=== PATIENT | female | born 1990 | race Caucasian/White ===

== ENCOUNTER 2020-09-06 00:53 | Outpatient (CLI) | payer SELFPAY ==
[2020-09-06 20:51] LABS: SARS-CoV-2 RNA PCR Negative
== END 2020-09-06 00:54 | disposition home or self-care (01) ==
LOC: ANHCOVIDDT 00:53
PROVIDERS: Visit Provider Surgery Plastic and Reconstructive Surgery
DX: Z01.812 Encounter for preprocedural laboratory examination (principal); Z20.828 Contact with and (suspected) exposure to other viral communicable diseases
CPT/HCPCS: 87635; C9803; U0003

== ENCOUNTER 2020-09-08 11:37 | Day surgery (SDC) | payer OTHER, SELFPAY ==
[2020-08-29 09:01] VITALS: BMI 19.5
--- NOTE | 2020-09-08 09:26 | WPDANESEPPF ---
Anes - Initial Pre Proc Eval Procedure: Operation Date: 09/08/20 14:00 Proposed Procedures p Bilateral Breast Implant Exchange with Galaflex - Drew Cox MD Date/Time: 09/08/20 09:26 Surgeon: Drew Cox MD Pre Op Diagnosis: History of breast augmentation Patient Data Age: 30 Gender: F Height: 5 ft 7 in Weight: 56.7 kg Allergies Allergy/AdvReac Type Severity Reaction Status Date / Time No Known Allergies Allergy Verified 09/08/20 12:10 Home Medications Medication Instructions Recorded Confirmed Type norgestimate-ethinyl estradiol 1 tablet PO DAILY 08/03/20 09/08/20 History 0.18 mg/0.215mg/0.25mg-35 mcg(28)tablet docusate sodium 100 mg capsule 100 mg PO DAILY #14 cap 08/25/20 09/08/20 Rx ondansetron HCl 4 mg tablet 4 mg PO Q8H #28 tablet 08/25/20 09/08/20 Rx Patient hx anesthesia problems: none Family hx anesthesia problems: none PMFSH Family History Family History Father Colon cancer Social History Social History Smoking status: Never smoker Alcohol intake: current Drinks per week: 2 Substance use: never Living arrangements: with family Gender identity (if verbalized by the patient): Female Spiritual care concerns: No Anes - Eval Final PreProcedure Day of Procedure 09/08/20 09:26 Patient weight: normal Heart: regular rate and rhythm Lungs: clear to auscultation Airway: Mallampati scale class II Neurological: alert and oriented Last oral intake: >/= 8 hours ASA classification: I Emergent: no Anesthetic plan: proceed Anesthesia type and monitoring: general LMA and standard monitoring Informed Consent: The patient's anesthetic plan and its attendant risks and benefits were discussed with the patient/family/POA. Questions were solicited and answers provided to the satisfaction of the patient/family/POA.
[2020-09-08] MEDS: SCOPOLAMINE 1.5 MG PATCH TRANSDERM (12:13)
[2020-09-08] MEDS: LACTATED RINGERS 1,000 ML 30 ML IV CONT ×2 (12:15→14:54)
[2020-09-08 12:36] VITALS: BP 120/87; PULSE 72; RESP 18; TEMP 37.2; O2SAT 100
--- NOTE | 2020-09-08 13:02 | WPDHPUPDATE1 ---
History and Physical Update Update Date/Time: 09/08/20 13:02 History and Physical has been reviewed, including an updated exam of the patient. There are NO changes in the patient's condition. Risks, benefits, and alternatives have been discussed and questions answered. Patient agrees to proceed with procedure.
--- NOTE | 2020-09-08 13:08 | P.OP_ITS ---
Procedure Note - Detailed Date of procedure: 09/08/20 Pre-op diagnosis: History of breast augmentation Post-op diagnosis: same Procedure performed: Bilateral breast implant exchange with placement of Galaflex. Description of procedure: Patient was marked in the preoperative holding area with her verification. We went over the risks, benefits, alternatives extensively. I want her to be very realistic about the risks involved as well as expectations. She states she is happy with the degree of symmetry she currently has. Would like to add approximately 100 cc the bilateral implants. She understands we may not be able to match this exactly. She would like proceed with galaflex on IMF bilateral. She would like to elevate the left implant understands there is no guarantee this will stay in position. All questions answered to her satisfaction today and consent obtained. She was taken to the operating room placed supine on the operating room table. Anesthesia provided by anesthesiology and prepped and draped in a standard s terile fashion. 1% lidocaine and 0.25% Marcaine with epinephrine was used to provide a field block. I did use Tegaderm nipple shield. A 15 blade used to excise the previous IMF incision. Implants were identified removed. Bilaterally I completed capsulotomy as necessary for the increased size implants. On the left I did a IMF popcorn capsulorrhaphy to elevate this implant based on her preoperative planning. I copiously irrigated with saline solution and verified a strict hemostasis. This was with a 3 L bag of saline on TUR tubing. I had soaked the galaflex on the back table and this was tacked into place and bilateral breast. The implants were introduced into the pocket using a Lord funnel. I made sure the mesh was in the appropriate position. This was closed using 2-0 Vicryl followed by 3-0 Monocryl in a running subcuticular 4-0 Monocryl and tissue glue. Dressings were placed as well as a surgical bra. She was awoke and taken to the PACU without difficulty. Instrument sponge counts were correct at the end of the case. Anesthesia: GLMA Surgeon: Drew Cox MD Estimated blood loss (mL): 5 Drains: No Packing: No Pathology: none sent Complications: No immediate complications Condition: stable Disposition: PACU Findings: Galaflex: REF [id number] Previous Implants: Right 270cc filled to ?? Left 240cc filled to ?? New Implants: Right REF 68HP-400 SN [id number] 400cc filled to 410cc Left REF 68HP-350 SN [id number] 350cc filled to 370cc.
[2020-09-08] MEDS: ceFAZolin SODIUM 2 GM/20 ML SW SYRINGE IV PUSH (13:25)
--- NOTE | 2020-09-08 13:41 | WPDANESPN ---
Anes - Prog Note Post-Op Date/Time: 09/08/20 13:41 Cardiovascular status: normal Respiratory status: normal Airway patency: baseline Mental status: baseline Post-Op hydration status: normal Vital Signs: Last Vital Signs Temp 37.2 C 09/08/20 12:36 Pulse 72 09/08/20 12:36 Resp 18 09/08/20 12:36 BP 120/87 09/08/20 12:36 Pulse Ox 100 09/08/20 12:36 Pain Score (VAS): 0 Post-procedural complaints: none Patient Feedback: Patient satisfied with anesthetic care.
[2020-09-08] MEDS: LIDO 1%/EPINEPHRINE 1:100,000 20 ML VIAL 30 ML INFILTRATE (13:55)
[2020-09-08 14:54] VITALS: BP 80/50; PULSE 88; RESP 16; TEMP 36.7; O2SAT 100
[2020-09-08 15:00] VITALS: BP 127/73; PULSE 82; RESP 16; O2SAT 100
[2020-09-08 15:15] VITALS: BP 118/64; PULSE 77; RESP 16; O2SAT 100
[2020-09-08 15:31] VITALS: BP 121/76; PULSE 77; RESP 16; O2SAT 100
--- NOTE | 2020-09-08 15:37 | PC.NURSE ---
Spoke to Dr. Dunlap in regards to rhythm on monitor NSR noted with PVC's. Pt states she feels fine. Ok to move pt to PACU II per Dr. Dunlap.
[2020-09-08 15:42] VITALS: BP 121/78; PULSE 88; RESP 20; TEMP 37.2; O2SAT 100
== END 2020-09-08 14:16 | disposition home or self-care (01) ==
PROVIDERS: Visit Provider Surgery Plastic and Reconstructive Surgery
PROC: (CPT 19342; principal; 2020-09-08 14:00)
DX: T85.49XA Other mechanical complication of breast prosthesis and implant, initial encounter (principal)
CPT/HCPCS: 19325

== ENCOUNTER 2023-04-22 01:46 | Day surgery (SDC) | payer OTHER, SELFPAY ==
[2023-04-10 14:27] VITALS: BMI 20.7
[2023-04-22 09:07] VITALS: BP 113/75; PULSE 78; RESP 14; TEMP 36.1; O2SAT 100
[2023-04-22] MEDS: LACTATED RINGERS 1,000 ML 150 ML IV CONT (09:14)
--- NOTE | 2023-04-22 10:02 | PM.HPGS ---
History of Present Illness History of Present Illness Consent: Risks, benefits, and alternatives have been discussed and questions answered. Patient agrees to proceed with procedure. Chief complaint: family hx colon ca Narrative: Susan He is a 33 year old female Presents for screening colonoscopy. Patient's family history is significant that her father had colon cancer in his 40s. Patient's current weight appetite and bowel movements are normal. Patient denies abdominal pain. She has had no bleeding. Review of Systems Review of Systems: review of systems noncontributory. [facility] Past Medical History Medical History (Updated 02/14/23 @ 11:23 by Janell Del Cid NP) Anxiety resolved Encounter to establish care Family history of colon cancer Surgical History Surgical History History of breast augmentation 08/2020 Family History Family History Father Colon cancer Mother Thyroid disease Other Diabetes mellitus Hypertension Social History Social History (Updated 02/14/23 @ 10:31 by Kasie Aquino MA) Smoking status: Never smoker Alcohol intake: current Drinks per week: 6 Substance use: never Substance use type: does not use Lack of Transportation: No Lack of Food: Never True Current Housing: I Have Housing Concerned About Future Housing: No Difficulty Paying Gas/Electric Bills: No Difficulty Paying for Meds: No Currently Unemployed: No Education: Bachelor's Degree Difficulty w/ Childcare or Family Care: No Living arrangements: with family Occupation/Education: occupation Additional occupation/education comments: nurse Gender identity (if verbalized by the patient): Female Sexual Orientation (if Verbalized by the Patient): Straight or Heterosexual Spiritual care concerns: No Meds Home Medications and Allergies Home Medications Medication Instructions Recorded Confirmed Type norgestimate-ethinyl estradiol 1 tablet PO DAILY #84 tabs 11/06/22 04/10/23 Rx 0.18 mg/0.215mg/0.25mg-35 mcg(28)tablet Allergies Allergy/AdvReac Type Severity Reaction Status Date / Time No Known Allergies Allergy Verified 04/22/23 09:05 Vital Signs Vital Signs - 24 hr 04/22/23 09:07 Temperature 97 F L Pulse Rate 78 Respiratory Rate 14 Blood Pressure 113/75 Pulse Oximetry 100 Oxygen Delivery Room Air Exam Narrative: Physical exam reveals patient to be alert. Vital signs stable. HEENT exam is unremarkable. Patient is anicteric. Lungs are clear to auscultation and percussion. Heart is without murmur or extra sounds. Abdomen bowel sounds are present soft nontender with no organomegaly. Digital external rectal exam is normal. Assessment and Plan Assessment and plan (1) Family history of colon cancer: Code(s): Z80.0 - Family history of malignant neoplasm of digestive organs Status: Acute Assessment and Plan: Patient's father had colon cancer while in his 40s. Plan for surveillance colonoscopy now consider this a 5 year intervals in the future.
--- NOTE | 2023-04-22 10:39 | WPDANESEPPF ---
Anes - Initial Pre Proc Eval Procedure: Operation Date: 04/22/23 10:30 Proposed Procedures p Screening Colonoscopy - Nikolay Lainez MD Date/Time: 04/22/23 10:39 Surgeon: Nikolay Lainez MD Pre Op Diagnosis: family hx colon ca Patient Data Age: 33 Gender: F Height: 1.7 m Weight: 58.6 kg Last Vital Signs Temp 97 F L 04/22/23 09:07 Pulse 78 04/22/23 09:07 Resp 14 04/22/23 09:07 BP 113/75 04/22/23 09:07 Pulse Ox 100 04/22/23 09:07 O2 Del Method Room Air 04/22/23 09:07 Allergies Allergy/AdvReac Type Severity Reaction Status Date / Time No Known Allergies Allergy Verified 04/22/23 09:05 Home Medications Medication Instructions Recorded Confirmed Type norgestimate-ethinyl estradiol 1 tablet PO DAILY #84 tabs 11/06/22 04/10/23 Rx 0.18 mg/0.215mg/0.25mg-35 mcg(28)tablet Patient hx anesthesia problems: none Family hx anesthesia problems: none Results Review: All pre-operative results and documents have been reviewed as part of the pre-operative evaluation. [facility] Past Medical History Medical History (Updated 02/14/23 @ 11:23 by Janell Del Cid NP) Anxiety resolved Encounter to establish care Family history of colon cancer Surgical History Surgical History History of breast augmentation 08/2020 Family History Family History Father Colon cancer Mother Thyroid disease Other Diabetes mellitus Hypertension Social History Social History (Updated 02/14/23 @ 10:31 by Kasie Aquino MA) Smoking status: Never smoker Alcohol intake: current Drinks per week: 6 Substance use: never Substance use type: does not use Lack of Transportation: No Lack of Food: Never True Current Housing: I Have Housing Concerned About Future Housing: No Difficulty Paying Gas/Electric Bills: No Difficulty Paying for Meds: No Currently Unemployed: No Education: Bachelor's Degree Difficulty w/ Childcare or Family Care: No Living arrangements: with family Occupation/Education: occupation Additional occupation/education comments: nurse Gender identity (if verbalized by the patient): Female Sexual Orientation (if Verbalized by the Patient): Straight or Heterosexual Spiritual care concerns: No Anes - Eval Final PreProcedure Day of Procedure 04/22/23 10:39 Patient weight: normal Heart: regular rate and rhythm Lungs: clear to auscultation Airway: Mallampati scale class II Neurological: alert and oriented Last oral intake: >/= 8 hours ASA classification: II Emergent: no Anesthetic plan: proceed Anesthesia type and monitoring: general GIVS and standard monitoring Results Review: All pre-operative results and documents have been reviewed as part of the pre-operative evaluation. Informed Consent: The patient's anesthetic plan and its attendant risks and benefits were discussed with the patient/family/POA. Questions were solicited and answers provided to the satisfaction of the patient/family/POA.
[2023-04-22] MEDS: SIMETHICONE ORAL SUSPENSION 20 MG/0.3 ML 30 ML BOTTLE 0.6 ML IRRIGATION (10:57)
[2023-04-22 11:06] VITALS: BP 87/49; PULSE 64; RESP 14; O2SAT 100
[2023-04-22 11:16] VITALS: BP 100/70; PULSE 66; RESP 22; O2SAT 100
[2023-04-22 11:26] VITALS: BP 121/79; PULSE 60; RESP 16; O2SAT 100
== END 2023-04-22 11:31 | disposition home or self-care (01) ==
PROVIDERS: PCP Nurse Practitioner Family; Visit Provider Internal Medicine Gastroenterology
PROC: 0DJD8ZZ Inspection of Lower Intestinal Tract, Via Natural or Artificial Opening Endoscopic (ICD-10-PCS; CPT 45378; principal; 2023-04-22 10:30)
DX: Z12.11 Encounter for screening for malignant neoplasm of colon (principal); D12.5 Benign neoplasm of sigmoid colon; Z80.0 Family history of malignant neoplasm of digestive organs
CPT/HCPCS: 45385; 88305; J2704; J7120